=== PATIENT | female | born 1990 | race Caucasian/White ===

== ENCOUNTER 2017-10-12 21:13 | Emergency (ER) | payer BC ==
[~2017-10-12] VITALS: Ht 170.2 cm; Wt 84.1 kg
[~2017-10-12 21:13] MED LIST: CARAFATE 1GM1 G PO; CELEXA10 MG PO; NEXPLANON68 MG ID; NORCO 325 MG-51 TAB PO; ORTHO TRI-CYCLE1 TAB PO; PRILOSEC 20MG20 MG PO; PROTONIX 40MG T40 MG PO
[2017-10-12 21:16] VITALS: BP 116/80; TEMP 98.9
[2017-10-12] MEDS ORDERED: AMOXICILLIN 8751 TAB PO (21:19)
[2017-10-12] MEDS ORDERED: [UNRECOGNIZED DRUG - OTHER] TP (21:19)
[2017-10-12 22:29] VITALS: PULSE 86
== END 2017-10-12 22:29 | disposition home or self-care (01) ==
LOC: COL.ER 21:13
DX: S01.112A Laceration without foreign body of left eyelid and periocular area, initial encounter (principal); W22.8XXA Striking against or struck by other objects, initial encounter

== ENCOUNTER → 2017-10-19 | Emergency (ER) | payer BC ==
[~2017-10-19] MED LIST changes: +AMOXICILLIN 8751 TAB PO; +[UNRECOGNIZED DRUG - OTHER] TP
[2017-10-19 11:24] VITALS: BP 115/73; PULSE 71; TEMP 98.1
== END ==
LOC: COL.ER 11:15
DX: S01.112D Laceration without foreign body of left eyelid and periocular area, subsequent encounter (principal); X58.XXXD Exposure to other specified factors, subsequent encounter

== ENCOUNTER 2019-02-14 23:47 | Emergency (ER) | payer OTHER ==
[~2019-02-14] VITALS: Ht 170.2 cm; Wt 86.4 kg
[2019-02-14 23:58] VITALS: BP 102/58; TEMP 100.2
[2019-02-15 00:25] LABS: BASO % 0.5 % (0.0-2.0); EOS # 0.4 (0.0-0.7); GRAN # 3.8 (1.4-6.5); GRAN % 43.4 % (42.2-75.2); HEMATOCRIT 40.4 % (37.0-47.0); HEMOGLOBIN 14.3 g/dl (12.5-16.0); LYMPH % 45.6 % (20.0-51.0); MEAN CELL VOLUME 91 fl (80.0-100.0); MEAN CORPUSCULAR HEMOGLOBIN 32 pg (27.0-31.0); MEAN CORPUSCULAR HGB CONC 35 g/dl (33.0-37.0); MEAN PLATELET VOLUME 9.1 fl (7.4-10.4); MONO # 0.6 (0.1-0.6); MONO % 6.3 % (1.7-9.3); PLATELET COUNT 234 K/mm3 (130-400); RED BLOOD COUNT 4.46 M/mm3 (4.10-5.30)
[2019-02-15 00:39] LABS: ALBUMIN 3.8 gm/dL (3.5-5.0); BILIRUBIN,TOTAL 0.3 mg/dL (0.0-1.0); CALCIUM 8.7 mg/dL (8.4-10.2); CREATININE, serum 0.58 (0.52-1.25); POTASSIUM 3.8 mmol/L (3.4-5.0); TOTAL PROTEIN 6.8 gm/dL (6.4-8.2)
[2019-02-15] MEDS ORDERED: CEPHALEXIN500 M1 PO (02:51)
[2019-02-15] MEDS ORDERED: PERCOCET 325 MG1 TA2 PO (02:51)
[2019-02-15 04:12] VITALS: PULSE 80
== END 2019-02-15 04:12 | disposition home or self-care (01) ==
LOC: COL.ER 23:47
PROVIDERS: Emergency Medicine
DX: S06.0X1A Concussion with loss of consciousness of 30 minutes or less, initial encounter (principal); S02.609A Fracture of mandible, unspecified, initial encounter for closed fracture; S02.5XXA Fracture of tooth (traumatic), initial encounter for closed fracture; V19.9XXA Pedal cyclist (driver) (passenger) injured in unspecified traffic accident, initial encounter; Y92.410 Unspecified street and highway as the place of occurrence of the external cause
CPT/HCPCS: A4216; J0696; J1170; J2405; J3010; J7030

== ENCOUNTER → 2019-03-01 | Outpatient (CLI) | payer OTHER ==
[~2019-03-01] MED LIST changes: +CEPHALEXIN500 M1 PO; +PERCOCET 325 MG1 TA2 PO
== END ==
LOC: COL.RAD 13:04
DX: S62.011A Displaced fracture of distal pole of navicular [scaphoid] bone of right wrist, initial encounter for closed fracture (principal)